=== PATIENT | female | born 1980 | race Caucasian/White ===

== ENCOUNTER 2024-07-30 09:14 | Emergency (ER) | payer OTHER, SELFPAY ==
[2024-07-30 09:34] VITALS: BP 138/92
[2024-07-30 11:03] VITALS: BP 136/71; BMI 24.2
--- NOTE | 2024-07-30 11:50 | EDRN ---
the pt approached this RN at the nurses station and stated to this RN, 'Am I just sitting here rotting? I mean is a doctor going to see me or not?', this RN apologized for the pts wait and stated that a provider would come to see the pt as soon as
they were available, this RN asked the pt if she needed anything at at this time and the pt stated that she needed to go to the bathroom and wanted this RN to show her where is was, 'Since i'm not in a room or anything and have no idea where it is',
this RN directed the pt to the bathroom and the pt was able to ambulate to the bathroom and back to the stretcher with no issues, no s/s of distress, the pt denies any worsening symptoms, the pt states that she has b/l neck pain still that is
currently a 2/10, no c/o lightheadedness, no c/o dizziness, will continue to monitor the pt closely
--- NOTE | 2024-07-30 12:08 | EDRN ---
Marlen Anthony CORPORATE DIRECTOR OF PHARMACY currently at the pts bedside speaking to the pt
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
== END 2024-07-30 12:21 | disposition home or self-care (01) ==
LOC: EMR 09:14
PROVIDERS: EMERGENCY PHYSICIAN Emergency Medicine
DX: S16.1XXA Strain of muscle, fascia and tendon at neck level, initial encounter (principal); S20.219A Contusion of unspecified front wall of thorax, initial encounter; V43.52XA Car driver injured in collision with other type car in traffic accident, initial encounter
CPT/HCPCS: 99284; 71046; 93005